=== PATIENT | female | born 1940 | race Caucasian/White ===

== ENCOUNTER 2019-12-27 10:15 | Emergency (ER) | payer OTHER ==
[2019-12-27 10:29] VITALS: TEMP 98.8; BMI 23.0
[2019-12-27] MEDS ORDERED: MECLIZINE HCL 25 MG TABLET (FP) PO ONE (10:37)
--- NOTE | 2019-12-27 10:43 | PDOC ---
History of Present Illness - General Chief Complaint: Lightheaded Stated Complaint: AFTER TURNING OVER DURING NIGHT HAD PERIOD OF "S Time Seen by Provider: 12/27/19 10:18 - History of Present Illness Initial Comments: 12/27/19 10:38 79 F with h/o DM, HTN, hypothyroid, osteoporosis, presenting to ED with dizziness. Pt states that she went to bed last night around midnight in her [facility]. She woke up in the middle of the night, unsure what time exactly, and suddenly felt the room spinning around her. She went back to sleep and states that she feels a little better this morning. However, she notes that she still feels the room spinning when she looks downwards. Pt also reports unsteadiness when she walks. Denies any weakness/numbness in any extremity. Pt notes she had a similar episode a few years ago that resolved spontaneously. NIH Stroke Scale - Last Known Well Date/Time & Onset Date Last Known Well: 12/27/19 Time Last Known Well: 00:00 - Initial Evaluation Level of consciousness: Alert Ask patient the month and their age: Answers both correctly Ask patient to open & close eyes; make fist and let go: Obeys both correctly Best gaze (horizontal eye movement): Normal Visual field testing: No visual field loss Facial paresis (Show teeth/raise eyebrows/close eyes tight): Normal symmetrical movement Motor Function: Left Arm: Normal Motor Function: Right Arm: Normal (extends arm 90 (or 45) degrees for 10 seco nds without drift Motor Function: Left Leg: Normal (extends leg 30 degrees for 5 seconds without drift) Motor Function: Right Leg: Normal (extends leg 30 degrees for 5 seconds without drift) Limb Ataxia: Present in two limbs Sensory(Use pinprick test arms,legs,trunk,face/side to side): Normal Best language (Describe picture, name items, read sentences): No Aphasia Dysarthria (read several words): Normal articulation Extinction and Inattention: No abnormality - Total Score NIH Stroke Scale Score: 2 Past History - Medical History Allergies/Adverse Reactions: Allergies Allergy/AdvReac Type Severity Reaction Status Date / Time No Known Allergies Allergy Unverified 12/27/19 10:19 Home Medications: Ambulatory Orders Hydrochlorothiazide [Hctz -] 12.5 mg PO DAILY 12/27/19 Levothyroxine [Synthroid -] 50 mcg PO DAILY 12/27/19 Olmesartan Medoxomil [Benicar (Nf)] 20 mg PO DAILY 12/27/19 Sitagliptin Phosphate [Januvia] 100 mg PO DAILY 12/27/19 COPD: No Diabetes: Yes HTN: Yes Thyroid Disease: Yes Other medical history: OSTEOPOROSIS - Psycho-Social/Smoking History Smoking History: Never smoked Information on smoking cessation initiated: No - Substance Abuse Hx (Audit-C & DAST Scrn) How often the patient has a drink containing alcohol: Never Score: In Men: 4 or > Positive; In Women: 3 or > Positive: 0 Screen Result (Pos requires Nsg. Audit-10AR): Negative In the last yr the pt used illegal drug/Rx for NonMed reason: No Score: Yes response is considered Positive: 0 Screen Result (Positive result requires Nsg. DAST-10): Negative Review of Systems - Review of Systems Comments:: 12/27/19 10:40 "GENERAL/CONSTITUTIONAL: No fever or chills. No weakness. HEAD, EYES, EARS, NOSE AND THROAT: No change in vision. No ear pain or discharge. No sore throat. CARDIOVASCULAR: No chest pain, no shortness of breath, no loss of consciousness RESPIRATORY: No cough, wheezing, or hemoptysis. GASTROINTESTINAL: No nausea, vomiting, diarrhea or constipation. GENITOURINARY: No dysuria, frequency, or change in urination. MUSCULOSKELETAL: No joint or muscle swelling or pain. No neck or back pain. SKIN: No rash NEUROLOGIC: + dizziness, no change in strength/sensation. ENDOCRINE: No increased thirst. No abnormal weight change. HEMATOLOGIC/LYMPHATIC: No anemia, easy bleeding, or history of blood clots. ALLERGIC/IMMUNOLOGIC: No hives or skin allergy. *Physical Exam - Vital Signs Last Vital Signs Temp Pulse Resp BP Pulse Ox 98.8 F 102 H 18 174/97 H 100 12/27/19 10:18 12/27/19 10:18 12/27/19 10:18 12/27/19 10:18 12/27/19 10:18 - Physical Exam 12/27/19 10:40 "GENERAL: Awake, alert, and fully oriented, in no acute distress. HEAD: No signs of trauma EYES: PERRLA, EOMI, sclera anicteric, conjunctiva clear ENT: Auricles normal inspection, hearing grossly normal, nares patent, oropharynx clear without exudates. Moist mucosa NECK: Nontender, no stepoffs, Normal ROM, supple, no lymphadenopathy, JVD, or masses LUNGS: Breath sounds equal, clear to auscultation bilaterally. No wheezes, and no crackles HEART: Regular rate and rhythm, normal S1 and S2, no murmurs, rubs or gallops ABDOMEN: Soft, nontender, normoactive bowel sounds. No guarding, no rebound. No masses EXTREMITIES: Normal range of motion, no edema. No clubbing or cyanosis. No cords, erythema, or tenderness NEUROLOGICAL: Cranial nerves II through XII intact. 5/5 strength and sensation in all extremities, Normal speech, + mildly ataxic gait, normal [id number] SKIN: Warm, Dry, normal turgor, no rashes or lesions noted. ED Treatment Course - LABORATORY CBC & Chemistry Diagram: 12/27/19 11:00 12/27/19 11:00 - RADIOLOGY Radiology Studies Ordered: Category Date Time Status HEAD CT (STROKE) [CT] Stat CT Scan 12/27/19 10:35 Ordered Medical Decision Making - Medical Decision Making 12/27/19 10:41 79 F with room-spinning dizziness. Suspect peripheral vertigo, as pt had a similar episode in the past that self-resolved. However, will need to consider CVA as well given pt's age and risk factors. NIHSS currently 2. Last known normal 12PM last night, outside window for tPA. - Labs - CT head - Meclizine 12/27/19 12:[address] head unremarkable pt reassessed - feels slightly better with meclizine but still a little unsteady when walking to bathroom I advised pt that she needs to stay in the hospital to be evaluated for possible stroke, but pt requesting to leave AMA. She states that she does not want to wait for MRI or neuro consultation. Would rather follow up with her doctors at [facility]. The patient is clinically sober, free from distracting injury, appears to have intact insight and judgment and reason and in my opinion has the capacity to make decisions. The patient presented with dizziness. I have explained that I am concerned that this may represent a stroke; they have verbalized an understanding of my concerns. I have told the patient that while their labs and CT were normal, they could still have a stroke. I have discussed the need for neurology consultation and possible admission to the hospital to get more information about potential causes of the patients dizziness. I have told the patient that if they leave, they could get much worse, could become critically ill, and could possibly become disabled or . She is refusing any further care and is leaving against medical advice. I am unable to convince the patient to stay, I have asked them to return as soon as possible to complete their evaluation. I have answered all their questions. Discharge - Discharge Information Problems reviewed: Yes Clinical Impression/Diagnosis: Dizziness, Ataxia Condition: Stable Disposition: AGAINST MEDICAL ADVICE - Follow up/Referral Referrals: Mitzi Tolbert MD [Primary Care Provider] - - Patient Discharge Instructions - Post Discharge Activity
[2019-12-27] MEDS ORDERED: MECLIZINE HCL 25 MG TABLET (FP) ONE (10:45)
[2019-12-27 11:23] LABS: BASO % 1.5 % (0-2.0); EOS % 0.3 % (0-4.5); HEMATOCRIT 37.7 % (32.4-45.2); HEMOGLOBIN 12.3 GM/dl (10.7-15.3); LYMPH % 10.5 % (8-40); MCH 28.8 pg (25.7-33.7); MCHC 32.7 g/dl (32.0-36.0); MEAN CELL VOLUME 88.2 fl (80-96); MEAN PLT VOLUME 7.3 fl (7.5-11.1); MONO % 5.1 % (3.8-10.2); NEUT % 82.6 % (42.8-82.8); PLATELET COUNT 301 K/MM3 (134-434); RBC 4.27 M/mm3 (3.60-5.2); RDW 14.1 % (11.6-15.6); WHITE BLOOD COUNT 8.1 K/mm3 (4.0-10.8)
[2019-12-27 11:36] LABS: ALBUMIN 4.3 g/dl (3.4-5.0); BILIRUBIN,TOTAL 0.8 mg/dl (0.2-1); CALCIUM 9.2 mg/dl (8.5-10); CREATININE 0.7 mg/dl (0.55-1.3); POTASSIUM 3.7 mmol/L (3.5-5.1); TOT PROT 7.3 g/dl (6.4-8.2)
[2019-12-27 11:38] LABS: INR 1.09 (0.82-1.09); PROTHROMBIN TIME (PATIENT) 12.2 SEC (10.2-13.0)
[2019-12-27 11:51] VITALS: BP 141/77; PULSE 96
--- NOTE | 2019-12-27 15:52 | EKG ---
Test Reason : Blood Pressure : / mmHG Vent. Rate : 082 BPM Atrial Rate : 082 BPM P-R Int : 188 ms QRS Dur : 120 ms QT Int : 394 ms P-R-T Axes : 080 056 022 degrees QTc Int : 460 ms NORMAL SINUS RHYTHM RIGHT BUNDLE BRANCH BLOCK SEPTAL INFARCT ABNORMAL ECG NO PREVIOUS ECGS AVAILABLE Confirmed by MD ELIZA, KRYSTA ([id number]) on 12/27/2019 3:51:46 PM Referred By: JUAN RAMON [place] Confirmed By:KRYSTA KAY MD
== END 2019-12-27 13:09 | disposition left against medical advice (07) ==
LOC: FER 10:15
DX: R42 Dizziness and giddiness (principal); R27.0 Ataxia, unspecified
CPT/HCPCS: 36415; 70450-TC; 80053; 81003; 82550; 84484; 85025; 85610; 85730; 87086; 87186; 93005; 99285-25

== ENCOUNTER 2021-10-22 12:42 | Emergency (ER) | payer OTHER ==
[2021-10-22 13:03] VITALS: BP 157/86; PULSE 88; TEMP 98.8; BMI 22.8
== END 2021-10-22 14:09 | disposition home or self-care (01) ==
LOC: FER 12:42
DX: S82.001A Unspecified fracture of right patella, initial encounter for closed fracture (principal); W01.0XXA Fall on same level from slipping, tripping and stumbling without subsequent striking against object, initial encounter; Y93.K1 Activity, walking an animal
CPT/HCPCS: 73562-TC-RT-FY; 99283-25

== ENCOUNTER 2022-04-01 13:34 | Inpatient (IN) | payer OTHER ==
[2022-04-01] MEDS ORDERED: dilTIAZem HCL 50 MG/10 ML - 10 ML VIAL IVPUSH ONE ×4 (13:45→14:51)
[2022-04-01 13:47] VITALS: BMI 23.6
[2022-04-01] MEDS ORDERED: dilTIAZem HCL 50 MG/10 ML - 10 ML VIAL ONE ×2 (14:00→16:25)
[2022-04-01] MEDS ORDERED: ADENOSINE 6 MG/2 ML VIAL IVPUSH ONE ×4 (14:04→14:31)
[2022-04-01 14:28] LABS: HEMATOCRIT 33.3 % (32.4-45.2); HEMOGLOBIN 11.2 G/dL (10.7-15.3); MCH 29.6 pg (25.7-33.7); MCHC 33.6 g/dl (32.0-36.0); MEAN CELL VOLUME 88.2 fl (80-96); MEAN PLT VOLUME 8.6 fl (7.5-11.1); PLATELET COUNT 240.2 10^3/uL (134-434); RBC 3.78 10^6/uL (3.60-5.2); RDW 18.1 % (11.6-15.6)
[2022-04-01 14:30] LABS: CALCIUM 8.8 mg/dl (8.5-10); CREATININE 0.7 mg/dl (0.55-1.3)
[2022-04-01 14:35] LABS: EPITHELIAL CELLS RARE /hpf
[2022-04-01 14:43] LABS: PLATELET ESTIMATE ADEQUATE
[2022-04-01] MEDS ORDERED: METOPROLOL TARTRATE 5 MG/5 ML VIAL IVPUSH ONE (15:19)
[2022-04-01] MEDS ORDERED: METOPROLOL TARTRATE 5 MG/5 ML VIAL ONE (15:25)
[2022-04-01] MEDS ORDERED: SODIUM CHLORIDE 0.9% 1000 ML INFUS.BAG IV ONE (16:19)
[2022-04-01] MEDS ORDERED: DIGOXIN 0.5 MG/2 ML AMPUL IVPUSH ONE ×2 (16:19→23:00)
[2022-04-01] MEDS ORDERED: CEFTRIAXONE 1,000 MG in DEXTROSE 5%-WATER - 50 ML IVPB ONE (16:19)
[2022-04-01] MEDS ORDERED: DIGOXIN 0.5 MG/2 ML AMPUL ONE (16:25)
[2022-04-02] MEDS ORDERED: DIGOXIN 0.5 MG/2 ML AMPUL IVPUSH ONE (06:00)
[2022-04-02] MEDS: LEVOTHYROXINE NA 75 MCG TABLET (FP) PO SCH (06:00)
[2022-04-02 07:51] LABS: HEMATOCRIT 35.4 % (32.4-45.2); HEMOGLOBIN 11.1 GM/dL (10.7-15.3); MCH 27.4 pg (25.7-33.7); MCHC 31.4 g/dl (32.0-36.0); MEAN PLT VOLUME 8.6 fl (7.5-11.1); PLATELET COUNT 247 10^3/uL (134-434); RBC 4.07 M/mm3 (3.60-5.2); RDW 19.7 % (11.6-15.6); WHITE BLOOD COUNT 6.3 K/mm3 (4.0-10.0)
[2022-04-02 08:26] LABS: CALCIUM 8.8 mg/dL (8.5-10.1)
[2022-04-02 08:27] LABS: BLOOD UREA NITROGEN 12.2 mg/dL (7-18)
[2022-04-02 08:29] LABS: CREATININE 0.7 mg/dL (0.55-1.3)
[2022-04-02] MEDS: APIXABAN 2.5 MG TABLET PO SCH ×2 (11:16→21:20)
[2022-04-02] MEDS: CEFTRIAXONE 1 GM in DEXTROSE 5%-WATER - 50 ML IVPB SCH (13:23)
[2022-04-03] MEDS: LEVOTHYROXINE NA 75 MCG TABLET (FP) PO SCH ×3 (06:50→08:14)
[2022-04-03] MEDS: APIXABAN 2.5 MG TABLET PO SCH ×2 (09:49→21:30)
[2022-04-03] MEDS: METOPROLOL TARTRATE 25 MG TABLET (FP) PO SCH ×3 (09:51→21:30)
[2022-04-03] MEDS: CEFTRIAXONE 1 GM in DEXTROSE 5%-WATER - 50 ML IVPB SCH (09:54)
[2022-04-03] MEDS ORDERED: ACETAMINOPHEN 500 MG TABLET (FP) PO ONE (10:09)
[2022-04-03 18:39] VITALS: RESP 18
[2022-04-04] MEDS: LEVOTHYROXINE NA 75 MCG TABLET (FP) PO SCH (06:29)
[2022-04-04] MEDS ORDERED: AMOX TR/POT CLAV 875MG/125MG TABLETS (FP) PO SCH (08:00)
[2022-04-04] MEDS ORDERED: LEVOTHYROXINE NA 50 MCG TABLET (FP) PO SCH (08:00)
[2022-04-04 08:30] LABS: BASO % 1.2 % (0-2.0); EOS % 5.5 % (0-4.5); HEMATOCRIT 34.4 % (32.4-45.2); HEMOGLOBIN 10.7 GM/dL (10.7-15.3); LYMPH % 35.1 % (8-40); MCH 27.5 pg (25.7-33.7); MCHC 31.2 g/dl (32.0-36.0); MEAN CELL VOLUME 88.1 fl (80-96); MEAN PLT VOLUME 8.3 fl (7.5-11.1); MONO % 8.7 % (3.8-10.2); NEUT % 49.5 % (42.8-82.8); PLATELET COUNT 244 10^3/uL (134-434); RBC 3.91 M/mm3 (3.60-5.2); RDW 19.3 % (11.6-15.6); WHITE BLOOD COUNT 5.8 K/mm3 (4.0-10.0)
[2022-04-04 08:49] LABS: BLOOD UREA NITROGEN 14.3 mg/dL (7-18); CALCIUM 8.7 mg/dL (8.5-10.1)
[2022-04-04 08:51] LABS: ALBUMIN 3.2 g/dl (3.4-5.0); MAGNESIUM 2.1 mg/dL (1.8-2.4)
[2022-04-04 08:54] LABS: CREATININE 0.6 mg/dL (0.55-1.3)
[2022-04-04 08:56] LABS: BILIRUBIN,TOTAL 0.5 mg/dL (0.2-1)
[2022-04-04] MEDS: APIXABAN 2.5 MG TABLET PO SCH ×2 (09:11→21:30)
[2022-04-04] MEDS: METOPROLOL TARTRATE 25 MG TABLET (FP) PO SCH ×3 (09:11→21:30)
[2022-04-04] MEDS: CEFTRIAXONE 1 GM in DEXTROSE 5%-WATER - 50 ML IVPB SCH (10:42)
[2022-04-05] MEDS: LEVOTHYROXINE NA 75 MCG TABLET (FP) PO SCH (06:09)
[2022-04-05] MEDS: METOPROLOL TARTRATE 25 MG TABLET (FP) PO SCH ×3 (06:27→21:24)
[2022-04-05] MEDS ORDERED: LEVOTHYROXINE NA 75 MCG TABLET (FP) PO SCH (07:00)
[2022-04-05] MEDS: APIXABAN 2.5 MG TABLET PO SCH ×2 (09:14→21:24)
[2022-04-05] MEDS: CEFTRIAXONE 1 GM in DEXTROSE 5%-WATER - 50 ML IVPB SCH (09:14)
[2022-04-06] MEDS: METOPROLOL TARTRATE 25 MG TABLET (FP) PO SCH (05:26)
[2022-04-06] MEDS: LEVOTHYROXINE NA 75 MCG TABLET (FP) PO SCH (06:18)
[2022-04-06] MEDS: APIXABAN 2.5 MG TABLET PO SCH (09:23)
[2022-04-06 13:37] VITALS: BP 129/76; PULSE 68; TEMP 99.7
== END 2022-04-06 16:53 | disposition home or self-care (01) | DRG 309 ==
LOC: FER 13:34 → JICU 19:29 → J4W 04-02 17:23
PROVIDERS: ADMIT Internal Medicine Pulmonary Disease; ATTEND Internal Medicine
DX: I48.92 Unspecified atrial flutter (principal); N39.0 Urinary tract infection, site not specified; E03.9 Hypothyroidism, unspecified; I10 Essential (primary) hypertension; I48.91 Unspecified atrial fibrillation; E11.65 Type 2 diabetes mellitus with hyperglycemia; R51.9 Headache, unspecified; I47.1 Supraventricular tachycardia
CPT/HCPCS: 36415; 71045-TC-FY; 80048; 80053; 81003; 81015; 83036; 83735; 84443; 84484; 85025; 85027; 87086; 87186; 93005; 93010; 93306-TC; 94010; 99285-25; C9803-CS; U0003; U0005

== ENCOUNTER 2022-04-09 19:29 | Inpatient (IN) | payer OTHER ==
[2022-04-09] MEDS ORDERED: SODIUM CHLORIDE 0.9% 500 ML INFUS.BAG IV ONE (19:54)
[2022-04-09] MEDS ORDERED: dilTIAZem HCL 50 MG/10 ML - 10 ML VIAL IVPUSH ONE ×2 (19:54)
[2022-04-09] MEDS ORDERED: dilTIAZem HCL 125 MG/25 ML - 25 ML VIAL ONE (20:04)
[2022-04-09] MEDS ORDERED: METOPROLOL TARTRATE 5 MG/5 ML VIAL IVPUSH ONE (20:46)
[2022-04-09] MEDS ORDERED: METOPROLOL TARTRATE 5 MG/5 ML VIAL ONE (20:55)
[2022-04-09 20:56] LABS: BASO % 1.1 % (0-2.0); EOS % 2.5 % (0-4.5); LYMPH % 17.8 % (8-40); MCH 27.3 pg (25.7-33.7); MCHC 31.7 g/dl (32.0-36.0); MEAN CELL VOLUME 86.1 fl (80-96); MEAN PLT VOLUME 8.8 fl (7.5-11.1); MONO % 6.6 % (3.8-10.2); PLATELET COUNT 433 10^3/uL (134-434); RBC 4.76 M/mm3 (3.60-5.2); RDW 18.6 % (11.6-15.6); WHITE BLOOD COUNT 5.5 K/mm3 (4.0-10.0)
[2022-04-09] MEDS ORDERED: metoPROLOL SUCCINATE 25 MG TAB.SR.24H (FP) PO ONE ×2 (21:00→21:01)
[2022-04-09 21:13] LABS: CHLORIDE 104 mmol/L (98-107); SODIUM 137 mmol/L (136-145)
[2022-04-09 21:15] LABS: CALCIUM 9.3 mg/dL (8.5-10.1)
[2022-04-09 21:16] LABS: BLOOD UREA NITROGEN 15.3 mg/dL (7-18); CO2 28 mmol/L (21-32); GLUCOSE,RANDOM 217 mg/dL (74-106)
[2022-04-09 21:19] LABS: CREATININE 0.9 mg/dL (0.55-1.3); SGOT/AST 98 U/L (15-37)
[2022-04-09 21:20] LABS: BILIRUBIN,TOTAL 0.8 mg/dL (0.2-1)
[2022-04-09 21:22] LABS: ALK PHOS 66 U/L (45-117)
[2022-04-09 21:27] LABS: ALBUMIN 3.8 g/dl (3.4-5.0); ANION GAP 5 MMOL/L (8-16); SGPT/ALT 36 U/L (13-61); TOT PROT 8.1 g/dl (6.4-8.2)
[2022-04-09 23:07] LABS: BLOOD UREA NITROGEN 14.1 mg/dL (7-18); CALCIUM 8.6 mg/dL (8.5-10.1)
[2022-04-09 23:08] LABS: ALBUMIN 3.3 g/dl (3.4-5.0)
[2022-04-09 23:11] LABS: CREATININE 0.7 mg/dL (0.55-1.3)
[2022-04-09 23:12] LABS: BILIRUBIN,TOTAL 0.5 mg/dL (0.2-1); TOT PROT 6.3 g/dl (6.4-8.2)
[2022-04-09] MEDS ORDERED: ASPIRIN 81 MG CHEWABLE TABLETS PO ONE (23:23)
[2022-04-09] MEDS ORDERED: ASPIRIN 81 MG CHEWABLE TABLETS ONE (23:32)
[2022-04-10] MEDS ORDERED: PATIENT'S OWN MEDICATION (NON-FORMULARY) (Alendronate Sodium [Alendronate Sodium] 70 MG Ta PO SCH (02:00)
[2022-04-10 02:33] VITALS: BMI 24.0
[2022-04-10 06:31] VITALS: BP 119/78; PULSE 120; RESP 19; TEMP 97.7
[2022-04-10] MEDS ORDERED: INSULIN SLIDING SCALE (NOVOLOG) 1 VIAL SQ SCH (07:00)
[2022-04-10] MEDS ORDERED: LEVOTHYROXINE NA 75 MCG TABLET (FP) PO SCH (07:00)
[2022-04-10] MEDS ORDERED: dilTIAZem HCL 50 MG/10 ML - 10 ML VIAL IVPUSH ONE (07:22)
[2022-04-10 08:11] LABS: BASO % 1.2 % (0-2.0); EOS % 5.6 % (0-4.5); HEMATOCRIT 35.6 % (32.4-45.2); HEMOGLOBIN 11.7 GM/dL (10.7-15.3); LYMPH % 28.3 % (8-40); MCH 28.2 pg (25.7-33.7); MEAN CELL VOLUME 85.4 fl (80-96); MONO % 9.9 % (3.8-10.2); PLATELET COUNT 330 10^3/uL (134-434); RBC 4.17 M/mm3 (3.60-5.2); RDW 18.1 % (11.6-15.6); WHITE BLOOD COUNT 5.2 K/mm3 (4.0-10.0)
[2022-04-10 08:32] LABS: TOT PROT 6.1 g/dl (6.4-8.2)
[2022-04-10 08:33] LABS: CALCIUM 8.9 mg/dL (8.5-10.1)
[2022-04-10 08:34] LABS: ALBUMIN 3.1 g/dl (3.4-5.0); BLOOD UREA NITROGEN 11.6 mg/dL (7-18); MAGNESIUM 2.3 mg/dL (1.8-2.4); PHOSPHOROUS 2.9 mg/dL (2.5-4.9)
[2022-04-10 08:35] LABS: CREATININE 0.6 mg/dL (0.55-1.3)
[2022-04-10 08:40] LABS: BILIRUBIN,TOTAL 0.6 mg/dL (0.2-1)
[2022-04-10] MEDS ORDERED: APIXABAN 2.5 MG TABLET PO SCH (10:00)
[2022-04-10] MEDS ORDERED: metoPROLOL SUCCINATE 25 MG TAB.SR.24H (FP) PO SCH (10:00)
[2022-04-11] MEDS ORDERED: LEVOTHYROXINE NA 50 MCG TABLET (FP) PO SCH (07:00)
== END 2022-04-10 08:35 | disposition short-term general hospital (02) | DRG 309 ==
LOC: JER 19:29 → JERBED 21:17 → J4W 04-10 01:38
PROVIDERS: ADMIT Internal Medicine; ATTEND Internal Medicine
DX: I48.91 Unspecified atrial fibrillation (principal); I24.8 Other forms of acute ischemic heart disease; K86.2 Cyst of pancreas; J98.11 Atelectasis; I10 Essential (primary) hypertension; E03.9 Hypothyroidism, unspecified; Z79.01 Long term (current) use of anticoagulants; M85.80 Other specified disorders of bone density and structure, unspecified site; E11.65 Type 2 diabetes mellitus with hyperglycemia; K44.9 Diaphragmatic hernia without obstruction or gangrene; E87.5 Hyperkalemia
CPT/HCPCS: 36415; 71045-TC-FY; 71250-TC; 80053; 82962; 83735; 84100; 84484; 85025; 93005; 93010; 99291; C9803-CS; U0003; U0005

== ENCOUNTER 2024-03-03 11:47 | Inpatient (IN) | payer OTHER ==
[2024-03-03 11:51] VITALS: BMI 23.4
[2024-03-03 13:08] LABS: BASO % 0.3 % (0-2.0); EOS % 0.2 % (0-4.5); HEMATOCRIT 28.3 % (32.4-45.2); HEMOGLOBIN 9.3 GM/dL (10.7-15.3); LYMPH % 4.2 % (8-40); MCH 27.5 pg (25.7-33.7); MEAN CELL VOLUME 83.4 fl (80-96); MEAN PLT VOLUME 8.3 fl (7.5-11.1); NEUT % 89.3 % (42.8-82.8); PLATELET COUNT 271 10^3/uL (134-434); RBC 3.39 M/mm3 (3.60-5.2); RDW 15.8 % (11.6-15.6)
[2024-03-03] MEDS: SODIUM CHLORIDE 0.9% 500 ML INFUS.BAG IV ONE (13:10)
[2024-03-03 13:15] LABS: INR 1.52 (0.83-1.09); PROTHROMBIN TIME (PATIENT) 17.3 SEC (9.7-13.0)
[2024-03-03 13:18] LABS: ACTIVATED PTT 26.1 SECONDS (25.2-36.5)
[2024-03-03 13:43] LABS: POTASSIUM 4.5 mmol/L (3.5-5.1)
[2024-03-03 13:45] LABS: ALBUMIN 2.4 g/dl (3.4-5.0); CALCIUM 8.6 mg/dL (8.5-10.1); MAGNESIUM 2.4 mg/dL (1.8-2.4)
[2024-03-03 13:48] LABS: CREATININE 1.2 mg/dL (0.55-1.3)
[2024-03-03 13:50] LABS: BILIRUBIN,TOTAL 1.2 mg/dL (0.2-1); TOT PROT 6.1 g/dl (6.4-8.2)
[2024-03-03 15:29] LABS: EPI CELLS 4 /uL (0-25.1); HYALINE CASTS 1 /uL (0-3.1); PH,URINE 5.5 (5.0-8.0); URINE APPEARANCE CLOUDY; URINE BACTERIA >9,000 /uL (0-1359); URINE BILIRUBIN NEGATIVE (NEGATIVE); URINE COLOR YELLOW; URINE GLUCOSE (UA) 1+ (NEGATIVE); URINE KETONE TRACE (NEGATIVE); URINE LEUK ESTERASE 2+ (NEGATIVE); URINE NITRITE NEGATIVE (NEGATIVE); URINE PROTEIN 2+ (NEGATIVE); URINE WBC 261 /uL (0-25.8)
[2024-03-03 15:30] LABS: URINE RBC 21 /uL (0-23.9)
[2024-03-03] MEDS ORDERED: CEFTRIAXONE 1 GM/50 ML BAG ONE (15:52)
[2024-03-03] MEDS: CEFTRIAXONE 1 GM in DEXTROSE 5%-WATER - 100 ML IVPB ONE (16:00)
[2024-03-03] MEDS ORDERED: PIPERACILLIN/TAZOB 3.375 GM 3.375 GM/50 ML BAG IVPB ONE (19:01)
[2024-03-03] MEDS: PIPERACILLIN/TAZOB 3.375 GM 3.375 GM in DEXTROSE 5%-WATER - 50 ML IVPB SCH (21:30)
[2024-03-03] MEDS: SODIUM CHLORIDE 1,000 ML IV SCH (21:30)
[2024-03-03] MEDS ORDERED: HEPARIN NA (PORCINE) 5,000 UNITS/ML 1ML VIAL SQ SCH (22:00)
[2024-03-04] MEDS: APIXABAN 2.5 MG TABLET PO SCH (00:41)
[2024-03-04] MEDS: metoPROLOL SUCCINATE 25 MG TAB.SR.24H (FP) PO SCH (00:41)
[2024-03-04] MEDS ORDERED: metoPROLOL SUCCINATE 25 MG TAB.SR.24H (FP) PO ONE ×2 (00:43→23:03)
[2024-03-04] MEDS ORDERED: APIXABAN 2.5 MG TABLET ONE ×2 (00:43→23:03)
[2024-03-04] MEDS ORDERED: PIPERACILLIN/TAZOB 3.375 GM 3.375 GM/50 ML BAG IVPB ONE ×3 (03:05→20:26)
[2024-03-04] MEDS: LEVOTHYROXINE NA 75 MCG TABLET (FP) PO SCH (07:09)
[2024-03-04] MEDS ORDERED: LEVOTHYROXINE NA 75 MCG TABLET (FP) ONE (07:13)
[2024-03-04 08:33] LABS: HEMATOCRIT 28.6 % (32.4-45.2); HEMOGLOBIN 9.2 GM/dL (10.7-15.3); MCH 27.4 pg (25.7-33.7); MCHC 32.3 g/dl (32.0-36.0); MEAN CELL VOLUME 84.7 fl (80-96); MEAN PLT VOLUME 8.8 fl (7.5-11.1); PLATELET COUNT 303 10^3/uL (134-434); RBC 3.38 M/mm3 (3.60-5.2); RDW 15.5 % (11.6-15.6); WHITE BLOOD COUNT 13.8 K/mm3 (4.0-10.0)
[2024-03-04 08:41] LABS: POTASSIUM 4.1 mmol/L (3.5-5.1)
[2024-03-04 08:43] LABS: CALCIUM 8.1 mg/dL (8.5-10.1)
[2024-03-04 08:44] LABS: BLOOD UREA NITROGEN 29.8 mg/dL (7-18)
[2024-03-04 08:47] LABS: CREATININE 1.1 mg/dL (0.55-1.3)
[2024-03-04] MEDS: PIPERACILLIN/TAZOB 3.375 GM 3.375 GM in DEXTROSE 5%-WATER - 50 ML IVPB SCH (09:07)
[2024-03-05] MEDS ORDERED: PIPERACILLIN/TAZOB 3.375 GM 3.375 GM/50 ML BAG IVPB ONE (02:12)
[2024-03-05] MEDS: INSULIN ASPART SLIDING SCALE (NOVOLOG) 1 VIAL SQ SCH (16:52)
[2024-03-05] MEDS: TAMSULOSIN HCL 0.4 MG CAP PO ONE (17:09)
[2024-03-05] MEDS: CEFTRIAXONE 1 GM in DEXTROSE 5%-WATER - 50 ML IVPB SCH (18:19)
[2024-03-06] MEDS: glipiZIDE 5 MG TABLET (FP) PO SCH (06:41)
[2024-03-06 10:49] LABS: BASO % 0.5 % (0-2.0); EOS % 2.5 % (0-4.5); HEMOGLOBIN 10.1 GM/dL (10.7-15.3); MCH 27.3 pg (25.7-33.7); MCHC 32.6 g/dl (32.0-36.0); MEAN CELL VOLUME 83.8 fl (80-96); MEAN PLT VOLUME 8.3 fl (7.5-11.1); MONO % 6.2 % (3.8-10.2); NEUT % 83.8 % (42.8-82.8); PLATELET COUNT 426 10^3/uL (134-434); WHITE BLOOD COUNT 9.9 K/mm3 (4.0-10.0)
[2024-03-06 11:45] LABS: ALBUMIN 2.2 g/dl (3.4-5.0); BLOOD UREA NITROGEN 14.4 mg/dL (7-18); CALCIUM 8.3 mg/dL (8.5-10.1)
[2024-03-06 11:48] LABS: CREATININE 0.8 mg/dL (0.55-1.3)
[2024-03-06 11:50] LABS: BILIRUBIN,TOTAL 0.5 mg/dL (0.2-1)
[2024-03-07 10:24] LABS: BASO % 0.8 % (0-2.0); EOS % 3.4 % (0-4.5); HEMATOCRIT 33.4 % (32.4-45.2); HEMOGLOBIN 10.6 GM/dL (10.7-15.3); LYMPH % 11.1 % (8-40); MCH 27.2 pg (25.7-33.7); MCHC 31.9 g/dl (32.0-36.0); MEAN CELL VOLUME 85.2 fl (80-96); MEAN PLT VOLUME 8.1 fl (7.5-11.1); MONO % 6.3 % (3.8-10.2); NEUT % 78.4 % (42.8-82.8); PLATELET COUNT 479 10^3/uL (134-434); RBC 3.92 M/mm3 (3.60-5.2); RDW 15.9 % (11.6-15.6); WHITE BLOOD COUNT 9.2 K/mm3 (4.0-10.0)
[2024-03-07 11:04] LABS: POTASSIUM 3.8 mmol/L (3.5-5.1)
[2024-03-07 11:22] LABS: ALBUMIN 2.2 g/dl (3.4-5.0); BLOOD UREA NITROGEN 11.6 mg/dL (7-18); CALCIUM 8.2 mg/dL (8.5-10.1)
[2024-03-07 11:25] LABS: CREATININE 0.7 mg/dL (0.55-1.3)
[2024-03-07 11:27] LABS: BILIRUBIN,TOTAL 0.6 mg/dL (0.2-1)
[2024-03-07] MEDS: LACTOBACILLUS ACIDOPHILUS 1 TABLET PO SCH (16:17)
[2024-03-08] MEDS: LOPERAMIDE HCL 2 MG CAPSULE PO ONE (09:58)
[2024-03-08] MEDS: CEFUROXIME AXETIL 250 MG TABLET PO SCH (09:59)
[2024-03-08] MEDS: ATORVASTATIN CA 10 MG TABLET (FP) PO SCH (21:13)
[2024-03-09 06:57] VITALS: RESP 18
[2024-03-09 12:33] VITALS: BP 114/81; PULSE 73; TEMP 97.5
== END 2024-03-09 15:56 | disposition home or self-care (01) | DRG 690 ==
LOC: JER 11:47 → JERBED 16:41 → J7W 03-05 07:53 → OBSVTOIN 03-06 12:07 → J7W 03-06 13:11
PROVIDERS: ADMIT Student in an Organized Health Care Education/Training Program; ATTEND Nurse Practitioner Family
DX: N39.0 Urinary tract infection, site not specified (principal); E87.1 Hypo-osmolality and hyponatremia; I24.89 Other forms of acute ischemic heart disease; E44.0 Moderate protein-calorie malnutrition; I48.91 Unspecified atrial fibrillation; E03.9 Hypothyroidism, unspecified; E11.9 Type 2 diabetes mellitus without complications; B96.20 Unspecified Escherichia coli [E. coli] as the cause of diseases classified elsewhere; E11.40 Type 2 diabetes mellitus with diabetic neuropathy, unspecified; Z68.23 Body mass index [BMI] 23.0-23.9, adult; R33.9 Retention of urine, unspecified; E78.5 Hyperlipidemia, unspecified; I10 Essential (primary) hypertension
CPT/HCPCS: 36415; 70450-TC; 76705-TC; 80048; 80053; 80061; 81003; 82550; 82570; 82962; 83036; 83735; 83880; 83930; 83935; 84300; 84443; 84484; 85025; 85027; 85610; 85730; 86704; 86709; 86803; 87086; 87186; 87340; 87517; 93005; 93010; 93306-TC; 93970-TC; 97116-GP; 97161-GP; 99285-25; G0378